=== PATIENT | female | born 1985 | race Caucasian/White ===

== ENCOUNTER 2023-02-28 03:25 | Observation (INO) | payer BC, SELFPAY ==
[2023-02-28] VITALS (8 sets, daily range): BP systolic 108–127; BP diastolic 60–84; PULSE 88–95; RESP 14–16; TEMP 36.2–36.7; O2SAT 98
--- NOTE | 2023-02-28 04:33 | ED_ITS ---
HPI - General Chief complaint: OB/Uterine Contractions Stated complaint: 17 Weeks Time Seen by Provider: 02/28/23 04:33 History of Present Illness HPI Narrative: 17 weeks . Started bleeding 3d ago. Sent in by fibre technologist due to increased bleeding. [id number]. No fever or dysuria Related Data Allergies Allergy/AdvReac Type Severity Reaction Status Date / Time No Known Drug Allergies Allergy Verified 02/28/23 04:53 Review of Systems ROS Status of ROS 10 or more systems reviewed and unremarkable except as noted in history and below PFSH PFS Social History Smoking status: Never smoker Exam Constitutional Vital Signs, click to edit/add: Last Vital Signs Temp 98 F 02/28/23 03:25 Pulse 95 H 02/28/23 03:25 Resp 14 02/28/23 03:25 BP 111/80 02/28/23 03:25 Pulse Ox 98 02/28/23 03:25 O2 Del Method Room Air 02/28/23 03:25 Common normals: no apparent distress, average body habitus, oriented x3 and no limitations Eye Common normals: EOMs intact bilaterally and conjunctivae normal Respiratory Common normals: normal respiratory effort and no use of accessory muscles Cardio Common normals: regular rate, regular rhythm, S1 normal heart sound and S2 normal heart sound GI Common normals: Normal to inspection, nondistended, normoactive bowel sounds present, soft to palpation and non-tender Extremity Common normals: normal to inspection and full ROM Neuro Common normals: oriented x3, CN's II-XII intact bilaterally, moves all extremities and no focal motor deficits Psych Appearance: grossly normal Course Vital Signs Vital signs: Vital Signs Temperature 98 F 02/28/23 03:25 Pulse Rate 95 H 02/28/23 03:25 Respiratory Rate 14 02/28/23 03:25 Blood Pressure 111/80 02/28/23 03:25 Pulse Oximetry 98 02/28/23 03:25 Oxygen Delivery Method Room Air 02/28/23 03:25 Temperature 98 F 02/28/23 03:25 Pulse Rate 95 H 02/28/23 03:25 Respiratory Rate 14 02/28/23 03:25 Blood Pressure 111/80 02/28/23 03:25 Pulse Oximetry 98 02/28/23 03:25 Oxygen Delivery Method Room Air 02/28/23 03:25 MDM - OB/Uterine Contractions MDM Narrative Medical decision making narrative: 17 weeks . Patient delivered fetus here in the department. Has passed some of the placenta but not all. Discussed with semiconductor manufacturing technician OB who will come in to deliver the plancenta Discharge Plan Discharge Chief Complaint: OB/Uterine Contractions Clinical Impression: Miscarriage Instructions: Miscarriage (ED) Referrals: Physician,Non-Staff, MD [Primary Care Provider] - 1 week
--- NOTE | 2023-02-28 06:13 | P.GYNHP_ITS ---
MUSIC SOUND LIGHT TECHNICIAN - H&P: HPI Last H&P Last H&P: No Data to Display Non-OR Reason for admission: vaginal bleeding and early complication Narrative: 37yo presents to ER with vaginal bleeding started and progressed to presentation to ER. Patient delivered fetus and placenta in ER. No US prior to presentation. Loss Reason for admission: second trimester demise Planned procedure: other Narrative: Complete miscarriage in ER at 17wk Review of Systems ROS Status of ROS 10 or more systems reviewed and unremarkable except as noted in history and below PFSH COUNT INCLUDES [facility] Medical History (Updated 02/28/23 @ 06:12 by Rosmery Eaton) Vaginal delivery ?O80 - Encounter for full-term uncomplicated delivery (ICD-10) Surgical History [place] teeth extracted ?K08.409 - Partial loss of teeth, unspecified cause, unspecified class (ICD- 10) Social History Smoking status: Never smoker Meds Home Medications and Allergies Allergies Allergy/AdvReac Type Severity Reaction Status Date / Time No Known Drug Allergies Allergy Verified 02/28/23 04:53 Exam Constitutional Vital Signs, click to edit/add: Last Vital Signs Temp 98 F 02/28/23 03:25 Pulse 95 H 02/28/23 03:25 Resp 14 02/28/23 03:25 BP 111/80 02/28/23 03:25 Pulse Ox 98 02/28/23 03:25 O2 Del Method Room Air 02/28/23 03:25 Documenting provider has reviewed patient's vital signs: yes Common normals: no apparent distress, average body habitus, oriented x3, no limitations, healthy appearing, alert and well nourished General appearance: cooperative and well developed Orientation/consciousness: Yes awake, Yes oriented to person, Yes oriented to place and Yes oriented to time HENMT Common normals: normocephalic Head and scalp: normal to inspection Eye Common normals: EOMs intact bilaterally General eye: normal appearance of both eyes Neck & C-Spine Common normals: full ROM Chest Common normals: inspection of chest normal Respiratory Common normals: normal respiratory effort Cardio Common normals: regular rate GI Common normals: Normal to inspection, nondistended, normoactive bowel sounds present Palpation: soft Percussion: normal to percussion Other: vulvar cleaned with water and tapes. Exam of perineum intact. Vagina intact. Exam of vagina with ring forcep - retained 4cm of placental membranes removed. Fundus firm and non tender. Minimal bleeding noted. To be given IV pitocin - 300mL bolus then 125cc/hour Back & Pelvis Common normals: no CVA tenderness Extremity Common normals: normal to inspection Neuro Common normals: oriented x3 Sensorium/orientation: awake and alert Psych Common normals: mental status grossly normal Assessment and Plan Assessment and Plan (1) Miscarriage: Assessment and Plan: Complete miscarriage in ER patient delivered non viable fetus -appears to be a boy with no gross abnormalities noted. No cardiac activity. Placenta intact and appears complete. Remaining membranes removed from vagina with ring forceps. Plan Complete miscarriage Pitocin 20u/1000cc bag, 300cc bolus then 125cc/hour Discussed options with patient and her Discussed with L&D nurse. Observe for 4 hours. to f/u with her OB in 4 week. to check blood type
--- NOTE | 2023-02-28 06:43 | PC.NURSE ---
Pt arrives to [facility] from ER at 0635. Pt arrived to ED for complaint of vaginal bleeding. resulted in miscarriage while in ED. OB physician assessed pt in ED and request pt to observed in [facility] for 4 hours with IV Post- Pitocin 20 units/ 1000ml. Hoang-care and pads changed per RNs. Small lochia noted on hoang-pad. Pt expresses feeling cramping at this time. Pt requests heating pad at this time. Pt given snack and fluids. Pt continuing to baron with fetus at bedside.
--- NOTE | 2023-02-28 06:45 | PM.GYNDS1 ---
DS: Providers Provider Date of admission: 02/28/23 06:16 Primary care physician: Non-Staff Physician, Admitting clinician: Rosmery Eaton Attending physician on admission: Rosmery Eaton Attending physician on discharge: Rosmery Eaton Discharging clinician: Rosmery Eaton Anticipated date of discharge: 02/28/23 DS: Diagnosis Discharge Diagnosis (1) Miscarriage: Assessment and plan: 17wk 2 days - complete Plan Complete 2nd trimester loss Pitocin 300mL bolus, then 125mL/hour observe for 4 hours discharge to home f/u with OB in 4 weeks DS: Summary Hospital Course Hospital Course: Observation IV pitocin Discharge after 4 hours if remains stable Time Spent with Patient Time attestation: Total time spent providing and/or coordinating discharge services: Time spent: less than 30 minutes Specific discharge activities: nothing per vagina for 4 weeks Exam Constitutional Vital Signs, click to edit/add: Last Vital Signs Temp 98 F 02/28/23 03:25 Pulse 95 H 02/28/23 03:25 Resp 14 02/28/23 03:25 BP 111/80 02/28/23 03:25 Pulse Ox 98 02/28/23 03:25 O2 Del Method Room Air 02/28/23 03:25 GI Common normals: Normal to inspection, nondistended, normoactive bowel sounds present Palpation: soft Rectal Exam - Female: deferred Common normals: external appearance normal Discharge Plan Discharge Disposition: Home, Self-Care Activity: resume usual activities as tolerated Activity Detail: nothing per vagina for 4 weeks Diet: advance to your usual diet Patient Instructions: Miscarriage (ED) Forms: Portal Instructions Follow Up Appointments: 4 weeks
[2023-02-28 07:06] LABS: Basophils Percent Auto 0.4 % (0.2-2.0); Eosinophils Absolute Auto 0.1 10^3/uL (0.0-0.7); Hematocrit 40.5 % (36.0-48.0); Immature Granulocytes Abs Auto 0.05 10^3/uL (0.00-0.03); Immature Granulocytes Pct Auto 0.5 % (0.0-0.5); Lymphocytes Absolute Auto 1.2 10^3/uL (1.2-3.8); Lymphocytes Percent Auto 11.4 % (20.5-60.0); Mean Corpuscular HGB Conc 32.1 g/dL (29.9-35.2); Mean Corpuscular Hemoglobin 26.5 pg (26.7-34.0); Mean Corpuscular Volume 82.7 fL (81.0-99.0); Mean Platelet Volume 11.6 fL (9.5-13.5); Monocytes Absolute Auto 0.6 10^3/uL (0.3-0.8); Monocytes Percent Auto 5.9 % (1.7-12.0); Neutrophils Absolute Auto 8.7 10^3/uL (1.4-6.5); Neutrophils Percent Auto 80.8 % (43.0-75.0); Platelet Count 280 10^3/uL (150-450); Red Cell Distribution Width 14.9 % (11.0-15.0); White Blood Count 10.8 10^3/uL (4.0-11.0)
--- NOTE | 2023-02-28 07:21 | PM.GYNPN2 ---
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 Non-OR Interval history: patient doing well pain controlled Exam Constitutional Vital Signs, click to edit/add: Last Vital Signs Temp 97.1 F L 02/28/23 06:56 Pulse 89 02/28/23 07:06 Resp 16 02/28/23 07:06 BP 112/84 02/28/23 07:06 Pulse Ox 98 02/28/23 07:06 O2 Del Method Room Air 02/28/23 07:06 GI Common normals: Normal to inspection, nondistended, normoactive bowel sounds present Palpation: soft Other: uterus firm, nontender, palpated 1-2FB above suprapubic bone Minimal bleeding Results Labs Labs: Short CBC 02/28/23 Range/Units 05:15 WBC 10.8 (4.0-11.0) 10^3/uL Hgb 13.0 (12.0-16.0) g/dL Hct 40.5 (36.0-48.0) % Plt Count 280 (150-450) 10^3/uL Additional Findings Additional findings: Rh + METAL CASTING TRADES WORKER - A/P Assessment and Plan (1) Miscarriage: Plan Complete miscarriage observation for 2 hours instead of 4 hours - patient request, she is stable F/u with her OB in 4 weeks Fall Risk Details Current medications: Current Medications Al Hydrox/Mg Hydrox/Simethicone (Maalox (Mag Hydrox/Aluminum Hyd/Simeth) 30 Ml Oral.Susp) 30 ml PO Q4H PRN PRN Reason: Indigestion Oxytocin 20 unit/ Sodium (Chloride) 1,002 mls @ 125 mls/hr IV Q8H LEELEE Stop: 02/28/23 15:00 Ibuprofen (Ibuprofen 600 Mg Tablet) 600 mg PO Q6H PRN PRN Reason: Moderate Pain Morphine Sulfate (Morphine Sulfate 4 Mg/Ml Vial) 4 mg IV Q6H PRN PRN Reason: Severe Pain Ondansetron HCl (Ondansetron Pf 4 Mg/2 Ml Vial) 4 mg IV Q4H PRN PRN Reason: Nausea And Vomiting Oxycodone/Acetaminophen (Oxycodone Hcl/Acetaminophen 5mg/325mg) 1 tab PO Q6H PRN PRN Reason: Pain Scale 4-6 Oxycodone/Acetaminophen (Oxycodone Hcl/Acetaminophen 5mg/325mg) 2 tab PO Q6H PRN PRN Reason: Pain Scale 7-10 Time Spent With Patient Time: Total time spent is greater than 50% in coordination of care (as documented) at patient's floor/unit and/or counseling patient: Time with patient: less than 15 minutes
--- NOTE | 2023-02-28 07:39 | PC.NURSE ---
Dr Eaton in and sees pt and assesses same. Sylwia rub noted, pt pain free, uterus firm, u/3 to u/4, pt taking fluids and toast. Discussed plan of care with pt and spouse.
--- NOTE | 2023-02-28 09:47 | PC.NURSE ---
0850 iv disconnected, up to BR and voids, no dizziness or discomfort noted, reviewed hoang care and signs and symptoms of excessive bleeding and infection with pt, scant rubra noted but passes a plum size clot
== END 2023-02-28 09:10 | disposition home or self-care (01) ==
LOC: ER 06:10 → FBC 06:21
PROVIDERS: Admitting Provider Obstetrics & Gynecology Gynecology; Emergency Provider Internal Medicine; Visit Provider Obstetrics & Gynecology Gynecology
DX: O03.9 Complete or unspecified spontaneous abortion without complication (principal)
CPT/HCPCS: 36415; 85025; 86850; 86900; 86901; 88309; 96374; 99285; G0378